=== PATIENT | female | born 1940 | race Caucasian/White ===

== ENCOUNTER 2021-02-02 08:28 | Day surgery (SDC) | payer MEDICARE, OTHER ==
[~2021-02-02] VITALS: Ht 170.2 cm; Wt 80.0 kg
[2021-02-02] VITALS (11 sets, daily range): BP systolic 144–183; BP diastolic 74–104
[2021-02-02] MEDS ORDERED: fentaNYL/PF 50MCG/1 ML 2ML syringe IV ONE (09:05)
[2021-02-02] MEDS ORDERED: normal saline 1000ml 1,000 ML IV SCH (09:05)
[2021-02-02] MEDS ORDERED: MIDAZolam 1mg/ml 10ml vial IV ONE (09:05)
[2021-02-02] MEDS ORDERED: MAGN250T11 PO (09:22)
[2021-02-02] MEDS ORDERED: MULT-1085 PO (09:22)
[2021-02-02] MEDS ORDERED: CHOL400T57 PO (09:22)
[2021-02-02] MEDS ORDERED: CITA20TA28 PO (09:22)
[2021-02-02] MEDS ORDERED: NEBI5TAB10 PO (09:22)
[2021-02-02] MEDS ORDERED: APIX5TAB3 PO (09:22)
[2021-02-02] MEDS ORDERED: HYDR-3968 PO (09:22)
[2021-02-02] MEDS ORDERED: HYDR25TA4 PO (09:22)
[2021-02-02] MEDS ORDERED: PROP150T2 PO (09:22)
[2021-02-02 09:36] LABS: BASOPHILS # (AUTO) 0.1 X10'3 (0-0.2); BASOPHILS % (AUTO) 1.1 % (0-1); EOSINOPHILS # (AUTO) 0.3 X10'3 (0-0.9); HEMATOCRIT 41.9 % (35.0-45.0); HEMOGLOBIN 13.9 g/dl (12.0-16.0); LYMPHOCYTES # (AUTO) 1.3 X10'3 (1.1-4.8); LYMPHOCYTES % (AUTO) 24.2 % (21-51); MEAN CORPUSCULAR HEMOGLOBIN 29.3 PG (27.0-31.0); MEAN CORPUSCULAR HGB CONC 33.2 g/dL (33.0-36.5); MEAN CORPUSCULAR VOLUME 88.1 FL (78-98); MEAN PLATELET VOLUME 8.3 FL (7.4-10.4); MONOCYTES # (AUTO) 0.4 X10'3 (0-0.9); MONOCYTES % (AUTO) 7.7 % (2-12); NEUTROPHILS # (AUTO) 3.3 X10'3 (1.8-7.7); PLATELET COUNT 227 X10'3 (140-440); RED BLOOD COUNT 4.75 X10'6 (4.20-5.60); RED CELL DISTRIBUTION WIDTH 13.8 % (11.5-14.5); WHITE BLOOD COUNT 5.5 X10'3 (4.5-11.0)
[2021-02-02 09:46] LABS: ALBUMIN 3.9 G/DL (3.4-5.0); ANION GAP 9 (8-16); BLOOD UREA NITROGEN 15 MG/DL (7-18); BUN/CREATININE RATIO 15.5 (6.6-38.0); CALCIUM 8.9 MG/DL (8.5-10.1); CHLORIDE 105 MMOL/L (99-107); CREATININE 0.97 MG/DL (0.40-0.90); GLUCOSE 92 MG/DL (70-104); MAGNESIUM 1.7 MG/DL (1.5-2.4); POTASSIUM 3.4 MMOL/L (3.5-5.1); SODIUM 145 MMOL/L (135-145); TOTAL CARBON DIOXIDE 31.1 MMOL/L (24-32); eGFR 56 ML/MIN
[2021-02-05] MEDS ORDERED: [UNRECOGNIZED DRUG - CODE] PO (07:19)
[2021-02-05] MEDS ORDERED: CALC-97 PO (07:47)
[2021-02-06] MEDS ORDERED: FURO-150 PO (09:08)
== END 2021-02-02 11:45 | disposition home or self-care (01) ==
LOC: SSTAY O 08:28
PROVIDERS: ATTEND Internal Medicine Cardiovascular Disease
DX: I48.11 Longstanding persistent atrial fibrillation (principal); I10 Essential (primary) hypertension; E78.5 Hyperlipidemia, unspecified; G45.4 Transient global amnesia; K21.9 Gastro-esophageal reflux disease without esophagitis; F32.9 Major depressive disorder, single episode, unspecified; Z85.3 Personal history of malignant neoplasm of breast; Z79.01 Long term (current) use of anticoagulants; Z79.899 Other long term (current) drug therapy; Z88.8 Allergy status to other drugs, medicaments and biological substances; Z88.1 Allergy status to other antibiotic agents; Z82.49 Family history of ischemic heart disease and other diseases of the circulatory system
CPT/HCPCS: 36415; 80048; 83735; 85025; 85610; 92960; 93005; J2250; J3010; J7030

== ENCOUNTER 2021-05-11 08:57 | Day surgery (SDC) | payer MEDICARE, OTHER ==
[2021-05-11] VITALS (11 sets, daily range): BP systolic 134–171; BP diastolic 73–98
[~2021-05-11] VITALS: Ht 170.2 cm; Wt 79.8 kg
[~2021-05-11 08:57] MED LIST: APIX5TAB3 PO; CALC-97 PO; CHOL400T57 PO; CITA20TA28 PO; FURO-150 PO; HYDR-3968 PO; MULT-1085 PO; NEBI5TAB10 PO; PROP150T2 PO; [UNRECOGNIZED DRUG - CODE] PO
[2021-05-11] MEDS ORDERED: fentaNYL/PF 50MCG/1 ML 2ML syringe IV ONE (09:40)
[2021-05-11] MEDS ORDERED: MIDAZolam 1mg/ml 10ml vial IV ONE (09:40)
[2021-05-11] MEDS ORDERED: MAGN250T11 PO (09:56)
[2021-05-11] MEDS ORDERED: POTA-82 PO (09:56)
[2021-05-11 10:07] LABS: EOSINOPHILS # (AUTO) 0.2 X10'3 (0-0.9); EOSINOPHILS % (AUTO) 4.9 % (0-6); HEMATOCRIT 39.9 % (35.0-45.0); HEMOGLOBIN 13.6 g/dl (12.0-16.0); LYMPHOCYTES # (AUTO) 1.3 X10'3 (1.1-4.8); LYMPHOCYTES % (AUTO) 26.6 % (21-51); MEAN CORPUSCULAR HEMOGLOBIN 29.8 PG (27.0-31.0); MEAN CORPUSCULAR HGB CONC 34.1 g/dL (33.0-36.5); MEAN CORPUSCULAR VOLUME 87.4 FL (78-98); MEAN PLATELET VOLUME 8.4 FL (7.4-10.4); MONOCYTES # (AUTO) 0.5 X10'3 (0-0.9); NEUTROPHILS # (AUTO) 2.8 X10'3 (1.8-7.7); NEUTROPHILS % (AUTO) 57.5 % (42-75); PLATELET COUNT 219 X10'3 (140-440); RED BLOOD COUNT 4.56 X10'6 (4.20-5.60); RED CELL DISTRIBUTION WIDTH 13.8 % (11.5-14.5); WHITE BLOOD COUNT 4.9 X10'3 (4.5-11.0)
[2021-05-11 10:18] LABS: ALBUMIN 3.6 G/DL (3.4-5.0); ANION GAP 8 (8-16); BLOOD UREA NITROGEN 16 MG/DL (7-18); BUN/CREATININE RATIO 15.5 (6.6-38.0); CALCIUM 8.7 MG/DL (8.5-10.1); CHLORIDE 106 MMOL/L (99-107); CREATININE 1.03 MG/DL (0.40-0.90); GLUCOSE 96 MG/DL (70-104); MAGNESIUM 2.1 MG/DL (1.5-2.4); POTASSIUM 3.9 MMOL/L (3.5-5.1); SODIUM 143 MMOL/L (135-145); TOTAL CARBON DIOXIDE 29.5 MMOL/L (24-32); eGFR 52 ML/MIN
== END 2021-05-11 11:55 | disposition home or self-care (01) ==
LOC: SSTAY O 08:57
PROVIDERS: ATTEND Internal Medicine Cardiovascular Disease
DX: I48.19 Other persistent atrial fibrillation (principal); E78.5 Hyperlipidemia, unspecified; I10 Essential (primary) hypertension; G45.4 Transient global amnesia; K21.9 Gastro-esophageal reflux disease without esophagitis; F32.9 Major depressive disorder, single episode, unspecified; Z85.3 Personal history of malignant neoplasm of breast; Z79.899 Other long term (current) drug therapy; Z79.01 Long term (current) use of anticoagulants; Z90.710 Acquired absence of both cervix and uterus; Z90.49 Acquired absence of other specified parts of digestive tract; Z88.8 Allergy status to other drugs, medicaments and biological substances; Z88.1 Allergy status to other antibiotic agents
CPT/HCPCS: 36415; 80048; 83735; 85025; 85610; 92960; 93005; J2250; J3010

== ENCOUNTER 2022-10-21 06:46 | Day surgery (SDC) | payer MEDICARE, OTHER ==
[~2022-10-21] VITALS: Ht 170.2 cm; Wt 81.2 kg
[2022-10-21] VITALS (14 sets, daily range): BP systolic 111–153; BP diastolic 61–96
[~2022-10-21 06:46] MED LIST changes: +MAGN250T11 PO; +POTA-82 PO; -[UNRECOGNIZED DRUG - CODE] PO
[2022-10-21] MEDS ORDERED: normal saline 1000ml 1,000 ML IV SCH (07:10)
[2022-10-21] MEDS ORDERED: fentaNYL/PF 50MCG/1 ML 2ML syringe IV ONE (07:10)
[2022-10-21] MEDS ORDERED: MIDAZolam 1mg/ml 10ml vial IV ONE (07:10)
[2022-10-21] MEDS ORDERED: AMLO5TAB16 PO (07:22)
[2022-10-21 07:56] LABS: BASOPHILS # (AUTO) 0.1 X10'3 (0-0.2); BASOPHILS % (AUTO) 0.7 % (0-1); EOSINOPHILS # (AUTO) 0.2 X10'3 (0-0.9); EOSINOPHILS % (AUTO) 3.3 % (0-6); HEMATOCRIT 43.2 % (35.0-45.0); HEMOGLOBIN 14.5 g/dl (12.0-16.0); LYMPHOCYTES # (AUTO) 1.5 X10'3 (1.1-4.8); LYMPHOCYTES % (AUTO) 21.1 % (21-51); MEAN CORPUSCULAR HEMOGLOBIN 29.9 PG (27.0-31.0); MEAN CORPUSCULAR HGB CONC 33.5 g/dL (33.0-36.5); MEAN CORPUSCULAR VOLUME 89.4 FL (78-98); MEAN PLATELET VOLUME 8.1 FL (7.4-10.4); MONOCYTES # (AUTO) 0.6 X10'3 (0-0.9); MONOCYTES % (AUTO) 8.8 % (2-12); NEUTROPHILS # (AUTO) 4.7 X10'3 (1.8-7.7); NEUTROPHILS % (AUTO) 66.1 % (42-75); PLATELET COUNT 230 X10'3 (140-440); RED BLOOD COUNT 4.83 X10'6 (4.20-5.60); RED CELL DISTRIBUTION WIDTH 13.7 % (11.5-14.5); WHITE BLOOD COUNT 7.1 X10'3 (4.5-11.0)
[2022-10-21 08:01] LABS: ALBUMIN 4.3 G/DL (3.4-5.0); ANION GAP 8 (8-16); BLOOD UREA NITROGEN 14 MG/DL (7-18); BUN/CREATININE RATIO 13.7 (10.0-20.0); CALCIUM 9.5 MG/DL (8.5-10.1); CHLORIDE 102 MMOL/L (99-107); CREATININE 1.02 MG/DL (0.40-0.90); GLUCOSE 100 MG/DL (70-104); MAGNESIUM 2.2 MG/DL (1.5-2.4); POTASSIUM 3.7 MMOL/L (3.5-5.1); SODIUM 142 MMOL/L (135-145); TOTAL CARBON DIOXIDE 32.5 MMOL/L (24-32); eGFR 52 ML/MIN
== END 2022-10-21 10:40 | disposition home or self-care (01) ==
LOC: SSTAY O 06:46
PROVIDERS: ATTEND Internal Medicine Cardiovascular Disease
DX: I48.19 Other persistent atrial fibrillation (principal); I10 Essential (primary) hypertension; K21.9 Gastro-esophageal reflux disease without esophagitis; C50.919 Malignant neoplasm of unspecified site of unspecified female breast; Z79.899 Other long term (current) drug therapy; Z98.890 Other specified postprocedural states; Z85.3 Personal history of malignant neoplasm of breast
CPT/HCPCS: 36415; 80048; 83735; 85025; 85610; 92960; 93005; J2250; J3010; J7030; A4620

== ENCOUNTER 2022-12-07 15:19 | Emergency (ER) | payer MEDICARE, OTHER ==
[~2022-12-07] VITALS: Ht 170.2 cm; Wt 80.9 kg
[~2022-12-07 15:19] MED LIST changes: +AMLO5TAB16 PO; -CALC-97 PO; -MULT-1085 PO; +POTA-366 PO; -POTA-82 PO
[2022-12-07 15:42] LABS: BASOPHILS % (AUTO) 0.8 % (0-1); EOSINOPHILS # (AUTO) 0.3 X10'3 (0-0.9); EOSINOPHILS % (AUTO) 6.7 % (0-6); HEMATOCRIT 43.9 % (35.0-45.0); HEMOGLOBIN 14.7 g/dl (12.0-16.0); LYMPHOCYTES # (AUTO) 1.4 X10'3 (1.1-4.8); LYMPHOCYTES % (AUTO) 26.6 % (21-51); MEAN CORPUSCULAR HEMOGLOBIN 29.5 PG (27.0-31.0); MEAN CORPUSCULAR HGB CONC 33.4 g/dL (33.0-36.5); MEAN CORPUSCULAR VOLUME 88.5 FL (78-98); MEAN PLATELET VOLUME 7.8 FL (7.4-10.4); MONOCYTES # (AUTO) 0.5 X10'3 (0-0.9); MONOCYTES % (AUTO) 9.2 % (2-12); NEUTROPHILS # (AUTO) 2.9 X10'3 (1.8-7.7); NEUTROPHILS % (AUTO) 56.7 % (42-75); PLATELET COUNT 244 X10'3 (140-440); RED BLOOD COUNT 4.97 X10'6 (4.20-5.60); RED CELL DISTRIBUTION WIDTH 13.8 % (11.5-14.5); WHITE BLOOD COUNT 5.2 X10'3 (4.5-11.0)
[2022-12-07 16:03] LABS: GLUCOSE 117 MG/DL (70-104)
[2022-12-07 16:04] LABS: ALANINE AMINOTRANSFERASE 22 U/L (12-78); ALBUMIN/GLOBULIN RATIO 1.3 (1.1-1.5); ALKALINE PHOSPHATASE 98 IU/L (46-116); ANION GAP 2 (8-16); ASPARTATE AMINO TRANSFERASE 20 U/L (10-37); BILIRUBIN,TOTAL 0.7 MG/DL (0.1-1.0); BLOOD UREA NITROGEN 12 MG/DL (7-18); BUN/CREATININE RATIO 10.6 (10.0-20.0); CALCIUM 9.7 MG/DL (8.5-10.1); CHLORIDE 102 MMOL/L (99-107); CREATININE 1.13 MG/DL (0.40-0.90); MAGNESIUM 2.2 MG/DL (1.5-2.4); POTASSIUM 4.1 MMOL/L (3.5-5.1); SODIUM 137 MMOL/L (135-145); eGFR 46 ML/MIN
[2022-12-07 18:08] VITALS: BP 157/103
[2022-12-07 18:45] LABS: D-DIMER 0.32 MG/L FEU (0-0.50)
[2022-12-07] MEDS ORDERED: normal saline 1000ML IV soln IVB ONE (19:00)
[2022-12-07] MEDS ORDERED: amox tr/potassium clavulanate 875/125mg TAB PO ONE (19:45)
[2022-12-07] MEDS ORDERED: AMOX-117 PO (19:48)
== END 2022-12-07 20:08 | disposition home or self-care (01) ==
LOC: ER 15:21
DX: R00.0 Tachycardia, unspecified (principal); R07.9 Chest pain, unspecified; K08.89 Other specified disorders of teeth and supporting structures; Z88.8 Allergy status to other drugs, medicaments and biological substances; Z88.1 Allergy status to other antibiotic agents; Z79.899 Other long term (current) drug therapy
CPT/HCPCS: 36415; 71045; 80053; 83735; 83880; 84484; 85025; 85379; 93005; 99285; J7030; J7040

== ENCOUNTER 2024-03-12 10:17 | Emergency (ER) | payer MEDICARE, OTHER ==
[~2024-03-12] VITALS: Ht 170.2 cm; Wt 72.6 kg
[~2024-03-12 10:17] MED LIST changes: -NEBI5TAB10 PO; +NEBI5TAB9 PO
[2024-03-12 11:30] LABS: BASOPHILS # (AUTO) 0.1 X10'3 (0-0.2); BASOPHILS % (AUTO) 0.9 % (0-1); EOSINOPHILS % (AUTO) 0.5 % (0-6); HEMATOCRIT 42.4 % (35.0-45.0); HEMOGLOBIN 13.9 g/dl (12.0-16.0); LYMPHOCYTES % (AUTO) 16.9 % (21-51); MEAN CORPUSCULAR HEMOGLOBIN 28.9 PG (27.0-31.0); MEAN CORPUSCULAR HGB CONC 32.9 g/dL (33.0-36.5); MEAN CORPUSCULAR VOLUME 87.9 FL (78-98); MEAN PLATELET VOLUME 8.4 FL (7.4-10.4); MONOCYTES # (AUTO) 0.5 X10'3 (0-0.9); MONOCYTES % (AUTO) 7.9 % (2-12); NEUTROPHILS # (AUTO) 4.6 X10'3 (1.8-7.7); NEUTROPHILS % (AUTO) 73.8 % (42-75); PLATELET COUNT 224 X10'3 (140-440); RED BLOOD COUNT 4.82 X10'6 (4.20-5.60); RED CELL DISTRIBUTION WIDTH 13.9 % (11.5-14.5); WHITE BLOOD COUNT 6.2 X10'3 (4.5-11.0)
[2024-03-12 11:43] LABS: ALANINE AMINOTRANSFERASE 20 U/L (12-78); ALBUMIN 3.9 G/DL (3.4-5.0); ALBUMIN/GLOBULIN RATIO 1.2 (1.1-1.5); ALKALINE PHOSPHATASE 76 IU/L (46-116); ANION GAP 10 (8-16); ASPARTATE AMINO TRANSFERASE 25 U/L (10-37); BILIRUBIN,TOTAL 0.8 MG/DL (0.1-1.0); BLOOD UREA NITROGEN 10 MG/DL (7-18); BUN/CREATININE RATIO 10.3 (10.0-20.0); CALCIUM 9.3 MG/DL (8.5-10.1); CHLORIDE 105 MMOL/L (99-107); CREATININE 0.97 MG/DL (0.40-0.90); GLUCOSE 111 MG/DL (70-104); POTASSIUM 3.2 MMOL/L (3.5-5.1); SODIUM 145 MMOL/L (135-145); TOTAL CARBON DIOXIDE 29.7 MMOL/L (24-32); TOTAL PROTEIN 7.2 G/DL (6.4-8.2); eCRCL 44 ML/MIN; eGFR 55 ML/MIN
[2024-03-12 11:50] LABS: LIPASE 28 U/L (16-77); PRO BRAIN NATRIURETIC PEPTIDE 805 PG/ML (0-450)
[2024-03-12] MEDS ORDERED: magnesium sulf-water 2g/50mL 50 ML IV PRN (11:50)
[2024-03-12] MEDS ORDERED: potassium Cl 20 mEq SR tablet PO PRN (11:50)
[2024-03-12] MEDS ORDERED: magnesium sulf-water 4G/100mL 100 ML IV PRN (11:50)
[2024-03-12] MEDS ORDERED: potassium Cl 40MEQ/1/2NS 520ml 520 ML IV PRN (11:50)
[2024-03-12] MEDS ORDERED: magnesium Cl slow-release 64mg tablet PO PRN (11:50)
[2024-03-12] MEDS: pantoprazole 40 MG vial IV ONE (12:35)
[2024-03-12] MEDS: ondansetron/PF 4mg/2ml inj IM ONE (12:35)
[2024-03-12] MEDS: normal saline 500ml IV soln 500 ML IV ONE (12:36)
[2024-03-12 13:07] LABS: BILIRUBIN,URINE NEGATIVE (Neg); CLARITY,URINE SLIGHTLY CLOUDY (Clear); COLOR,URINE YELLOW (Yellow); GLUCOSE, URINE NEGATIVE (Neg); KETONES,URINE NEGATIVE (Neg); LEUKOCYTE ESTERASE ,URINE SMALL (Neg); NITRITES, URINE NEGATIVE (Neg); OCCULT BLOOD,URINE SMALL (Neg); PH,URINE 7.5 (4.8-8.0); PROTEIN,URINE NEGATIVE (Neg); UROBILINOGEN,URINE 0.2 E.U/dL (0.2-1.0)
[2024-03-12 13:08] LABS: UA COLLECTION TYPE NON-SPECIFIED
[2024-03-12 13:14] LABS: SQUAMOUS EPITHELIAL CELL,UR MODERATE /LPF (FEW)
[2024-03-12 13:15] LABS: BACTERIA,URINE 2+ /HPF (Neg)
[2024-03-12] MEDS ORDERED: PANT-47 PO ×3 (14:13→20:50)
[2024-03-12] MEDS ORDERED: CEFU250T95 PO ×3 (14:13→20:50)
[2024-03-12] MEDS ORDERED: METR70GE27 VG ×3 (14:13→20:50)
[2024-03-12] MEDS: potassium Cl 20 mEq SR tablet PO PRN (14:18)
[2024-03-12] MEDS: CefTRIAXone/D5W-Rocephin 1gm 50 ML IV ONE (14:18)
[2024-03-12 15:22] VITALS: TEMP 97.9
[2024-03-12 15:51] VITALS: BP 152/87; PULSE 66; RESP 16; O2SAT 96
[2024-03-12] MEDS ORDERED: K and/or MAG REPLACEMENT MC SCH (20:00)
[2024-03-13] MEDS ORDERED: ONDA-243 PO (08:39)
== END 2024-03-12 15:52 | disposition home or self-care (01) ==
LOC: ER 10:17
DX: N39.0 Urinary tract infection, site not specified (principal); K29.60 Other gastritis without bleeding; I48.91 Unspecified atrial fibrillation; I11.0 Hypertensive heart disease with heart failure; I50.9 Heart failure, unspecified; Z88.8 Allergy status to other drugs, medicaments and biological substances; Z79.899 Other long term (current) drug therapy; Z90.49 Acquired absence of other specified parts of digestive tract; Z90.710 Acquired absence of both cervix and uterus; Z98.890 Other specified postprocedural states
CPT/HCPCS: 36415; 71045; 80053; 81001; 83690; 83880; 84145; 84484; 85025; 87088; 93005; 96365; 96366; 96368; 96372; 99285; J0696; J2405; J2470; J7040

== ENCOUNTER 2024-04-08 12:44 | Emergency (ER) | payer MEDICARE, OTHER ==
[~2024-04-08] VITALS: Ht 170.2 cm; Wt 74.7 kg
[~2024-04-08 12:44] MED LIST changes: +CEFU250T95 PO; +METR70GE27 VG; +ONDA-243 PO; +PANT-47 PO
[2024-04-08 13:00] VITALS: TEMP 97.3
[2024-04-08 13:14] LABS: BASOPHILS % (AUTO) 0.6 % (0-1); EOSINOPHILS # (AUTO) 0.1 X10'3 (0-0.9); EOSINOPHILS % (AUTO) 2.6 % (0-6); HEMATOCRIT 43.4 % (35.0-45.0); HEMOGLOBIN 14.1 g/dl (12.0-16.0); LYMPHOCYTES # (AUTO) 1.8 X10'3 (1.1-4.8); LYMPHOCYTES % (AUTO) 34.2 % (21-51); MEAN CORPUSCULAR HEMOGLOBIN 28.9 PG (27.0-31.0); MEAN CORPUSCULAR HGB CONC 32.4 g/dL (33.0-36.5); MEAN CORPUSCULAR VOLUME 89.2 FL (78-98); MEAN PLATELET VOLUME 8.1 FL (7.4-10.4); MONOCYTES # (AUTO) 0.6 X10'3 (0-0.9); MONOCYTES % (AUTO) 10.5 % (2-12); NEUTROPHILS # (AUTO) 2.7 X10'3 (1.8-7.7); NEUTROPHILS % (AUTO) 52.1 % (42-75); PLATELET COUNT 222 X10'3 (140-440); RED BLOOD COUNT 4.86 X10'6 (4.20-5.60); RED CELL DISTRIBUTION WIDTH 14.7 % (11.5-14.5); WHITE BLOOD COUNT 5.3 X10'3 (4.5-11.0)
[2024-04-08 13:34] LABS: ALANINE AMINOTRANSFERASE 14 U/L (12-78); ALBUMIN 4.1 G/DL (3.4-5.0); ALBUMIN/GLOBULIN RATIO 1.3 (1.1-1.5); ALKALINE PHOSPHATASE 79 IU/L (46-116); ANION GAP 8 (8-16); ASPARTATE AMINO TRANSFERASE 34 U/L (10-37); BILIRUBIN,TOTAL 0.6 MG/DL (0.1-1.0); BLOOD UREA NITROGEN 12 MG/DL (7-18); BUN/CREATININE RATIO 13.2 (10.0-20.0); CALCIUM 9.8 MG/DL (8.5-10.1); CHLORIDE 104 MMOL/L (99-107); CREATININE 0.91 MG/DL (0.40-0.90); GLUCOSE 108 MG/DL (70-104); POTASSIUM 3.5 MMOL/L (3.5-5.1); SODIUM 142 MMOL/L (135-145); TOTAL CARBON DIOXIDE 29.9 MMOL/L (24-32); TOTAL PROTEIN 7.3 G/DL (6.4-8.2); eCRCL 47 ML/MIN; eGFR 59 ML/MIN
[2024-04-08 13:42] LABS: PRO BRAIN NATRIURETIC PEPTIDE 347 PG/ML (0-450)
[2024-04-08 14:18] LABS: BILIRUBIN,URINE NEGATIVE (Neg); CLARITY,URINE CLEAR (Clear); COLOR,URINE YELLOW (Yellow); GLUCOSE, URINE NEGATIVE (Neg); KETONES,URINE NEGATIVE (Neg); LEUKOCYTE ESTERASE ,URINE TRACE (Neg); NITRITES, URINE NEGATIVE (Neg); OCCULT BLOOD,URINE MODERATE (Neg); PH,URINE 7.5 (4.8-8.0); PROTEIN,URINE NEGATIVE (Neg); UROBILINOGEN,URINE 0.2 E.U/dL (0.2-1.0)
[2024-04-08] MEDS: ondansetron/PF 4mg/2ml inj IV ONE (14:18)
[2024-04-08] MEDS: morphine 2 MG/ML inj. syringe IV ONE (14:18)
[2024-04-08 14:24] LABS: UA COLLECTION TYPE CLN CATCH MIDSTREAM
[2024-04-08 14:27] LABS: BACTERIA,URINE FEW /HPF (Neg); SQUAMOUS EPITHELIAL CELL,UR NONE SEEN /LPF (FEW); WBC,URINE 0-4 /HPF (0-4)
[2024-04-08 14:35] LABS: PRO BRAIN NATRIURETIC PEPTIDE 364 PG/ML (0-450)
[2024-04-08] MEDS ORDERED: METO5TAB98 PO (15:26)
[2024-04-08] MEDS ORDERED: SUCR1ORA15 PO (15:26)
[2024-04-08 15:37] VITALS: BP 158/78; PULSE 63; RESP 18; O2SAT 98
== END 2024-04-08 15:43 | disposition home or self-care (01) ==
LOC: ER 12:45
DX: R07.89 Other chest pain (principal); I48.91 Unspecified atrial fibrillation; I50.9 Heart failure, unspecified; I11.0 Hypertensive heart disease with heart failure; Z88.8 Allergy status to other drugs, medicaments and biological substances; Z79.899 Other long term (current) drug therapy; Z79.2 Long term (current) use of antibiotics; Z90.49 Acquired absence of other specified parts of digestive tract; Z90.710 Acquired absence of both cervix and uterus
CPT/HCPCS: 36415; 71045; 80053; 81001; 83880; 84484; 85025; 87088; 93005; 96374; 96375; 99285; J2270; J2405

== ENCOUNTER 2024-08-13 08:40 | Emergency (ER) | payer MEDICARE, OTHER ==
[~2024-08-13] VITALS: Ht 175.3 cm; Wt 74.5 kg
[~2024-08-13 08:40] MED LIST changes: +CARCD120C PO; -CEFU250T95 PO; -CHOL400T57 PO; -METR70GE27 VG; -ONDA-243 PO; -PANT-47 PO; -POTA-366 PO; -PROP150T2 PO; +SUCR1ORA15 PO
[2024-08-13 09:40] LABS: CLARITY,URINE CLOUDY (Clear); COLOR,URINE RED (Yellow)
[2024-08-13 09:50] LABS: UA COLLECTION TYPE CLN CATCH MIDSTREAM
[2024-08-13 09:51] LABS: BACTERIA,URINE NONE SEEN /HPF (Neg); MUCUS STRANDS NONE SEEN /LPF (Neg); RBC,URINE TNTC /HPF (0-2); SQUAMOUS EPITHELIAL CELL,UR NONE SEEN /LPF (FEW); WBC,URINE 0-4 /HPF (0-4)
[2024-08-13 09:55] LABS: BASOPHILS % (AUTO) 0.3 % (0-1); EOSINOPHILS % (AUTO) 0.4 % (0-6); HEMATOCRIT 35.6 % (35.0-45.0); HEMOGLOBIN 11.8 g/dl (12.0-16.0); LYMPHOCYTES # (AUTO) 0.8 X10'3 (1.1-4.8); LYMPHOCYTES % (AUTO) 6.5 % (21-51); MEAN CORPUSCULAR HEMOGLOBIN 29.1 PG (27.0-31.0); MEAN CORPUSCULAR HGB CONC 33.1 g/dL (33.0-36.5); MEAN PLATELET VOLUME 8.8 FL (7.4-10.4); MONOCYTES # (AUTO) 1.2 X10'3 (0-0.9); MONOCYTES % (AUTO) 9.8 % (2-12); NEUTROPHILS # (AUTO) 9.9 X10'3 (1.8-7.7); PLATELET COUNT 188 X10'3 (140-440); RED BLOOD COUNT 4.05 X10'6 (4.20-5.60); RED CELL DISTRIBUTION WIDTH 13.9 % (11.5-14.5)
[2024-08-13 10:11] LABS: ALBUMIN 3.1 G/DL (3.4-5.0); ANION GAP 5 (8-16); BLOOD UREA NITROGEN 14 MG/DL (7-18); BUN/CREATININE RATIO 16.3 (10.0-20.0); CALCIUM 8.8 MG/DL (8.5-10.1); CHLORIDE 96 MMOL/L (99-107); CREATININE 0.86 MG/DL (0.40-0.90); GLUCOSE 104 MG/DL (70-104); POTASSIUM 3.9 MMOL/L (3.5-5.1); SODIUM 130 MMOL/L (135-145); TOTAL CARBON DIOXIDE 29.1 MMOL/L (24-32); eCRCL 54 ML/MIN; eGFR 63 ML/MIN
[2024-08-13 11:28] VITALS: TEMP 97.6
[2024-08-13] MEDS: ketorolac trometh 30MG/ML vial 30 MG/ML VIAL IM ONE (11:42)
[2024-08-13 11:48] VITALS: BP 123/75; PULSE 101; RESP 15; O2SAT 95
== END 2024-08-13 11:45 | disposition home or self-care (01) ==
LOC: ER 08:40
DX: G89.18 Other acute postprocedural pain (principal); R10.9 Unspecified abdominal pain; I11.0 Hypertensive heart disease with heart failure; I50.32 Chronic diastolic (congestive) heart failure; K21.9 Gastro-esophageal reflux disease without esophagitis; K29.50 Unspecified chronic gastritis without bleeding; G89.4 Chronic pain syndrome; I48.91 Unspecified atrial fibrillation; Z88.8 Allergy status to other drugs, medicaments and biological substances; Z90.49 Acquired absence of other specified parts of digestive tract; Z90.710 Acquired absence of both cervix and uterus
CPT/HCPCS: 36415; 80048; 81001; 83605; 84145; 85025; 87040; 96372; 99284; J1885